=== PATIENT | male | born 1965 | race Hispanic/Latino ===

== ENCOUNTER 2018-04-22 08:54 | Day surgery (SDC) | payer MEDICAID ==
[2018-04-11 09:24] VITALS: BMI 34.2
[2018-04-22] MEDS ORDERED: Bupivacaine 0.5% 50 ML IJ ONE (09:39)
[2018-04-22] MEDS ORDERED: Bupivacaine Liposomal Inj 20 ml ONE (09:40)
[2018-04-22 10:09] VITALS: RESP 18
[2018-04-22] MEDS ORDERED: Propofol 10 mg/ml Inj (20 ML) ONE ×2 (10:38→11:35)
[2018-04-22] MEDS ORDERED: Rocuronium 10 mg/ml (5 ml) ONE (10:39)
[2018-04-22] MEDS ORDERED: Midazolam 2 MG/2 ML VIAL ONE (10:39)
[2018-04-22] MEDS ORDERED: CeFAZolin 1 gm in NS 100ml IVPB ONE (10:48)
[2018-04-22] MEDS ORDERED: Glycopyrrolate 0.2 mg/ml (2ml vial) ONE (11:16)
[2018-04-22] MEDS ORDERED: Neostigmine Methylsulfate 3mg/3ml Syringe IV ONE (11:17)
[2018-04-22] MEDS ORDERED: Morphine 2 mg/ml ISec IVP PRN (11:29)
[2018-04-22] MEDS ORDERED: Lactated Ringer's 1,000 ML IV SCH (11:30)
[2018-04-22] MEDS ORDERED: Bupivacaine 0.5% Inj(30mL) IJ ONE (11:30)
--- NOTE | 2018-04-22 11:52 | PCM.SURG1 ---
Surgeon's Initial Post Op Note - Surgeon's Notes Surgeon: Dr. Smith Resolution Analyst: Dr. Melara PGY3 Type of Anesthesia: General Endo Pre-Operative Diagnosis: incarcerated ventral hernia Operative Findings: see dictation Post-Operative Diagnosis: same Operation Performed: open ventral hernia repair w/ mesh Specimen/Specimens Removed: hernia sac, omentum Estimated Blood Loss: EBL {In ML}: 10 Blood Products Given: N/A Drains Used: No Drains Post-Op Condition: Good Date of Surgery/Procedure: 04/22/18 Time of Surgery/Procedure: 11:52
[2018-04-22] MEDS ORDERED: Morphine 4 mg/ml ISec IVP ONE ×2 (12:20→12:35)
[2018-04-22] MEDS ORDERED: Morphine 4 mg/ml ISec ONE (12:23)
[2018-04-22 13:48] VITALS: TEMP 98.4; O2SAT 96
[2018-04-22 13:55] VITALS: BP 97/59; PULSE 70
--- NOTE | 2018-04-24 12:17 | OP ---
PROCEDURE DATE: 04/22/2018 The patient is admitted and operated on 04/22/2018. SURGEON: Art Smith MD JUNIOR PROJECT MANAGER: Almaz Villatoro DO, PGY-3. TYPE OF ANESTHESIA: General endotracheal - bupivacaine 0.5 - 14 mL. ANESTHESIA ADMINISTERED BY: She George MD PREOPERATIVE DIAGNOSES: 1. Incarcerated ventral hernia. 2. Obesity. POSTOPERATIVE DIAGNOSES: 1. Incarcerated ventral hernia. 2. Obesity. PROCEDURE: On 04/22/2018: 1. Ventral herniorrhaphy with (Ventralex 3.5 inch mesh). 2. Omentectomy. OPERATIVE INDICATION: The patient is a 53-year-old male with a very large incarcerated ventral hernia just above the umbilicus that is causing more and more discomfort and now the skin is breaking down and turning excoriated red. Risks, benefits and their alternatives were discussed with the patient and he signs the informed consent. OPERATIVE NOTE: The patient was brought to the operating room from the same-day holding area where he is marked for the operative site. He is identified by his wristband and undergoes time-out procedure. He is now placed on the table in a supine manner, undergoes the induction of general anesthesia with the insertion of an endotracheal tube and sequential compression devices were placed in his lower extremity. A Couch is not needed as the patient has just voided at this point. The abdomen was prepped with Hibiclens chlorhexidine preparation and the patient is now aseptically draped. Infiltration is performed around the umbilicus with the long-acting bupivacaine. An incision made and sharp dissection carried on down to the fascia and hemostasis contained with cautery. The hernia sac is now opened, incarcerated within is a large omental section with multiple openings and holes and it is elected at this point to transect this serially with Magy clamp and 2-0 chromic catgut ligature. The omentum is submitted in formalin for permanent section analysis and the hernia sac is dissected free from the fascia and the skin and hemostasis is contained with cautery. The sac is now submitted separately in formalin for permanent section analysis to pathology as well. The abdominal wall is now inspected both intra-abdominally and exteriorly and hemostasis is confirmed and a 3.5 inch Ventralex mesh placed into the peritoneal cavity and the anterior fascia closed with [id number] 2-0 Prolene sutures. The fascia and skin are now infiltrated with bupivacaine liberally and the subcutaneous approximation is employed using 3-0 Polysorb and a 4-0 Biosyn subcuticular closure is used for the skin with Dermabond adhesive. A dry dressing is applied. The patient is awakened, extubated, and transported to the recovery room in a satisfactory condition. Sponge, instrument and suture count were verified as correct at the end of the procedure. Estimated blood loss during this procedure was less than 20 mL of blood. This dictation will be electronically signed without being read. Art Smith MD
== END 2018-04-22 15:20 | disposition home or self-care (01) ==
LOC: SDS 08:54 → EDBD 10:30 → SDS 15:20
PROVIDERS: ATTEND Surgery
DX: K43.6 Other and unspecified ventral hernia with obstruction, without gangrene (principal); F17.200 Nicotine dependence, unspecified, uncomplicated; E66.9 Obesity, unspecified; Z68.34 Body mass index [BMI] 34.0-34.9, adult
CPT/HCPCS: 49561; 49568; 88302; J0690; J1100; J2001; J2250; J2270 ×2; J2405; J2704; J2710; J2765; J3010; J7120